=== PATIENT | male | born 1955 | race Caucasian/White ===

== ENCOUNTER → 2017-03-28 | Outpatient (CLI) | payer BC, MEDICARE ==
[2016-03-06 23:15] VITALS: BP 125/73
[~2017-03-28] MED LIST: ALLO300T PO; DULO60CA6 PO; EMPA25TA PO; ESOM40CA PO; GLIP10TA13 PO; IOHEXOL 300 MG/ML 100ML VIAL. IV ONE; LISI-334 PO; LORA1TAB PO; METO200T3 PO; SIMV40TA3 PO; TIZA4CAP PO; ZOLP10TA4 PO
--- NOTE | 2017-03-28 13:29 | KCIC ---
PROCEDURE CT abdomen and pelvis with and without contrast. HISTORY Microscopic hematuria. Elevated PSA. TECHNIQUE Precontrast imaging through the abdomen and pelvis was performed. Portal venous phase imaging through the kidneys was performed. Delayed imaging with coronal and sagittal maximum intensity projection re-formatted images was provided. The patient received 95 milliliters of intravenous Omnipaque 300 without complication. One or more of the following individualized dose reduction techniques were utilized for this exam: 1. Automated exposure control. 2. Adjustment of the mA and/or kV according to patient's size. 3. Use of iterative reconstruction technique. COMPARISON None. FINDINGS Precontrast imaging does not demonstrate any obstructing or nonobstructing renal calculus. Subcentimeter left renal cyst is noted. Delayed imaging through the collecting systems demonstrates no urothelial lesion. Bladder is mildly distended and grossly unremarkable. No endoluminal filling defect within the bladder is identified. Prostate is not enlarged. Prostate calcifications are noted. Two potential nodules are noted in the lingula on the 1st image of the precontrast series, up to 7 millimeters in size. Apparent dilated opacified bronchus in the left lower lobe is noted as well. There is no pleural effusion. There is atelectasis or linear scarring in the lung bases. The heart is not enlarged. Coronary artery calcifications are noted. Liver, gallbladder, spleen, pancreas, and adrenals are all grossly unremarkable. There is minimal atheromatous disease in the abdominal aorta. There is no dilated small bowel loop or air-fluid level. Normal appendix is noted. There is no pelvic sidewall adenopathy. There is no free pelvic fluid. There are mild degenerative changes in the spine which are greatest at the lumbosacral junction. IMPRESSION 1. No obstructing or nonobstructing renal calculus. Negative for urothelial lesion. 2. Sub centimeter left renal cyst. 3. Coronary artery calcifications. 4. Pulmonary nodules in the left lung base as well as dilated opacified left lower lobe bronchus. Assuming no prior studies with which to compare, 6 month follow up would be suggested. Electronically signed by: James Mccullough MD (March 28, 2017 13:27:59)
== END | disposition home or self-care (01) ==
LOC: KCIC CT 08:14
PROVIDERS: ATTEND Urology
DX: R31.29 Other microscopic hematuria (principal); N28.1 Cyst of kidney, acquired; R97.20 Elevated prostate specific antigen [PSA]; I25.10 Atherosclerotic heart disease of native coronary artery without angina pectoris; R91.1 Solitary pulmonary nodule; J44.9 Chronic obstructive pulmonary disease, unspecified; I10 Essential (primary) hypertension; F17.200 Nicotine dependence, unspecified, uncomplicated; E11.9 Type 2 diabetes mellitus without complications
CPT/HCPCS: 74178; 82565; Q9967

== ENCOUNTER → 2017-04-10 | Outpatient (CLI) | payer BC ==
[2016-03-06 23:15] VITALS: BP 125/73
[~2017-04-10] MED LIST changes: -IOHEXOL 300 MG/ML 100ML VIAL. IV ONE
== END | disposition home or self-care (01) ==
LOC: LAB 13:42
PROVIDERS: ATTEND Urology
DX: Z12.5 Encounter for screening for malignant neoplasm of prostate (principal); R97.20 Elevated prostate specific antigen [PSA]
CPT/HCPCS: 36415; G0103

== ENCOUNTER → 2017-04-26 | Outpatient (CLI) | payer BC ==
[2016-03-06 23:15] VITALS: BP 125/73
--- NOTE | 2017-04-26 10:16 | KCIC ---
EXAM: Chest CT without intravenous contrast. HISTORY: Pulmonary nodule follow-up. TECHNIQUE: Computed tomographic images of the chest were obtained without contrast. Multiplanar reformatting was performed. *One or more of the following individualized dose reduction techniques were utilized for this examination: 1. Automated exposure control. 2. Adjustment of the mA and/or kV according to patient size. 3. Use of iterative reconstruction technique. COMPARISON: 03/28/2017. FINDINGS: There are multiple nodular and groundglass opacities throughout both lungs, some of which are somewhat spiculated in appearance. This includes the recently demonstrated cluster of solid and groundglass nodules within the lateral left lower lobe and multiple additional nodules throughout the upper and lower lobes and right middle lobe. The largest nodules measure 8 mm. There is no pneumothorax or pleural effusion. The heart is normal in size. There is a trace pericardial effusion or pericardial thickening. There are multiple prominent mediastinal lymph nodes, the largest of which includes a 1.7 cm right paratracheal lymph node with faint calcification. There is central bronchial wall thickening and hilar lymphadenopathy, the latter which is difficult to measure due to the absence of intravenous contrast. There is a somewhat spiculated soft tissue density within the superior left hilum which may be due to aforementioned bronchial wall thickening and lymphadenopathy. However, the possibility of a superimposed hilar nodule is not excluded. There is coronary artery atherosclerosis. There is left greater than right basilar atelectasis. There is increased bilateral posterior pleural fat. There is no consolidation. No suspicious osseous lesion is seen. There is degenerative change throughout the thoracic spine. IMPRESSION: 1. Multiple scattered groundglass and nodular opacities throughout both lungs, some of which are somewhat spiculated in appearance and the largest of which measures approximately 8 mm. This includes a stable cluster of nodular opacities within the lateral left lower lobe demonstrated on the recent abdomen and pelvis CT. The differential includes postinfectious and postinflammatory etiologies as well as metastatic and primary bronchogenic neoplasms. In the absence of additional prior studies to assess longer term stability, short-term follow-up is recommended in 3 months. 2. Central bronchial wall thickening and hilar lymphadenopathy, difficult to assess in the absence of intravenous contrast. The possibility of a superimposed hilar nodule is not excluded on this exam. Attention the time of short-term follow-up is indicated. 3. Left greater than right lower lobe atelectasis or pleural-parenchymal scarring. Electronically signed by: Jessica Damon MD (04/26/2017 10:12 AM)
== END | disposition home or self-care (01) ==
LOC: KCIC CT 09:09
PROVIDERS: ATTEND Internal Medicine Critical Care Medicine
DX: R91.1 Solitary pulmonary nodule (principal); I10 Essential (primary) hypertension; F17.200 Nicotine dependence, unspecified, uncomplicated
CPT/HCPCS: 71250

== ENCOUNTER → 2017-08-04 | Outpatient (CLI) | payer BC ==
[2016-03-06 23:15] VITALS: BP 125/73
[~2017-08-04] MED LIST changes: -METO200T3 PO; +METO200T5 PO
--- NOTE | 2017-08-04 11:00 | KCIC ---
CT CHEST WO CONTRAST dated 08/04/2017 10:00 AM Indication: Lung nodule follow-up, smoker Comparison: April 26, 2017 Technique: Noncontrast CT imaging was performed of the chest, multiplanar reconstruction images submitted. One or more of the following individualized dose reduction techniques were utilized for this examination: 1. Automated exposure control 2. Adjustment of the mA and/or kV according to patient size 3. Use of iterative reconstruction technique. Findings: There are again multiple noncalcified nodules of the bilateral hemithoraces, some of which have a spiculated margin. Overall size and morphology is unchanged. Largest nodule of the right middle lobe measures 0.8 cm. There are also some foci of nodularity and groundglass density of the left lower lobe overall similar. There is again coronary calcification. There is no new lobar consolidation, pleural fluid, or pneumothorax. Thoracic aortic caliber is stable. There are again several mediastinal nodes, some associated calcification of subcarinal nodes. There are again suspected hilar nodes, not obviously changed. No new significant enlarged nodes are identified. IMPRESSION: 1. There are again multiple noncalcified bilateral pulmonary nodules not significantly changed compared with April 26, 2017 exam, some of which have a spiculated margin as seen previously. Nodules left lower lobe are subsolid appearance. Largest nodule again measures on the order of 0.8 cm. Mediastinal and hilar lymph nodes are unchanged. Follow-up in 3-6 months is recommended as per revised Fleischner guidelines. 2. There is coronary calcification. Electronically signed by: Mandeep Damico MD (08/04/2017 10:56 AM) [id number]
== END | disposition home or self-care (01) ==
LOC: KCIC CT 09:36
PROVIDERS: ATTEND Internal Medicine Critical Care Medicine
DX: R91.8 Other nonspecific abnormal finding of lung field (principal); R91.1 Solitary pulmonary nodule; F17.290 Nicotine dependence, other tobacco product, uncomplicated
CPT/HCPCS: 71250

== ENCOUNTER → 2018-01-05 | Outpatient (CLI) | payer BC | END | disposition home or self-care (01) | LOC: KCIC CT 09:21 | DX: I25.10 Atherosclerotic heart disease of native coronary artery without angina pectoris (principal); R91.8 Other nonspecific abnormal finding of lung field | CPT/HCPCS: 71250 ==

== ENCOUNTER → 2018-09-14 | Outpatient (CLI) | payer BC ==
[2016-03-06 23:15] VITALS: BP 125/73
[~2018-09-14] MED LIST changes: +METO200T46 PO; -METO200T5 PO
--- NOTE | 2018-09-14 10:32 | KCIC ---
CT CHEST WO CONTRAST dated 09/14/2018 8:30 AM Indication: Follow-up lung nodule... Comparison: 01/05/2018. Technique: Contiguous axial imaging the chest performed without the administration of intravenous contrast. One or more of the following individualized dose reduction techniques were utilized for this examination: 1. Automated exposure control 2. Adjustment of the mA and/or kV according to patient size 3. Use of iterative reconstruction technique Findings: Heart size within normal limits. No pericardial effusion. Mild ectasia of the ascending thoracic aorta measuring 3.97 is transverse diameter, unchanged. There are scattered coronary calcifications. There are mildly enlarged subcarinal, pretracheal and right paratracheal lymph nodes that measure up to 1.6 cm short axis, unchanged. There are also borderline enlarged lymph nodes posterior to the trachea near the thoracic inlet, stable from prior exam. No axillary or hilar adenopathy. There few scattered calcified lymph nodes. Central airways are patent. Mild emphysema. Noncalcified pulmonary nodule in the central left upper lobe on image 53 measures 8 mm, unchanged. There is also noncalcified pulmonary nodules in the left upper lobe on images 62 and 55 that measure up to 5 mm maximum dimension, unchanged. Several smaller subpleural nodular densities in the left upper lobe, stable. There is a 4 mm nodule in the left upper lobe on image 64, unchanged. Several additional noncalcified nodules in the right middle lobe, lingula and bilateral lower lobes are stable. There is a linear density in the lateral left lower lobe that likely represents mucous plugging, unchanged. A nodular density in the left lower lobe medially on image 133 measures 1.2 cm, unchanged. Medial left lower lobe nodule on image 144 measures 9 mm, unchanged. No new parenchymal nodule or focal consolidation. No significant pleural effusion. Limited images of the upper abdomen are unremarkable. No significant bony abnormality. Multilevel spondylosis. IMPRESSION: 1. Multiple noncalcified pulmonary nodules throughout both lungs, stable from prior study. Continued follow-up imaging recommended to ensure stability. 2. Mild mediastinal lymphadenopathy, also unchanged, nonspecific. 3. Area of mucous plugging in the left lower lobe is unchanged. 4. Coronary artery calcifications and mild aortic ectasia Electronically signed by: Kwadwo Avina MD (09/14/2018 10:29 AM) [id number]
== END | disposition home or self-care (01) ==
LOC: KCIC CT 08:06
PROVIDERS: ATTEND Internal Medicine Critical Care Medicine
DX: T17.890D Other foreign object in other parts of respiratory tract causing asphyxiation, subsequent encounter (principal); I77.810 Thoracic aortic ectasia; M47.894 Other spondylosis, thoracic region; I25.10 Atherosclerotic heart disease of native coronary artery without angina pectoris; R91.8 Other nonspecific abnormal finding of lung field; R59.0 Localized enlarged lymph nodes; X58.XXXD Exposure to other specified factors, subsequent encounter
CPT/HCPCS: 71250

== ENCOUNTER 2021-07-24 18:09 | Emergency (ER) | payer BC, MEDICARE ==
[~2021-07-24] VITALS: Ht 180.3 cm; Wt 92.0 kg
[~2021-07-24 18:09] MED LIST changes: -LISI-334 PO; +LISI20TA18 PO; +SIMV40TA18 PO; -SIMV40TA3 PO
[2021-07-24] MEDS ORDERED: ASPIRIN CHEWABLE 81 MG TABLET. PO ONE (18:30)
--- NOTE | 2021-07-24 18:31 | ED.ADGEN ---
Past Medical History Past Medical History: Anxiety, High Cholesterol, Hypertension Past Surgical History: Other Additional Past Surgical Histo: back Smoking Status: Current Some Day Smoker Alcohol Use: None Drug Use: None General Adult HPI: HPI: Patient is a 65 year old male coming in for sternal chest pain for the last 3 days. Patient states that he feels fine when sitting up but feels a pressure when he lays down flat. Patient states 3 days ago he was in the pool and went to tack picker his and thought maybe he had pulled something. Came in today because he wants to be sure he is not having a heart attack. Denies any other symptoms or radiation of the pain. States he otherwise has been well. Has no cardiac history. Has history of diabetes and hypertension and states he is compliant with medications. Has had both of his Covid vaccines. Denies any drug or alcohol use, smokes cigar every other day. Review of Systems: Review of Systems: All other systems within normal limits except for as noted in the HPI Current Medications: Current Medications Medications (Trade) Dose Ordered Sig/Benjamín Start Time Stop Time Status Last Admin Dose Admin Aspirin (Aspirin Chewable) 324 mg 1X ONCE 07/24/21 18:30 07/24/21 18:46 DC 07/24/21 18:43 324 MG Allergies: Allergies: Allergies Coded Allergies Type Severity Reaction Last Updated Verified No Known Drug Allergies 03/06/16 No Physical Exam: PE: Constitutional: Well developed, well nourished, no acute distress, non-toxic appearance. [] HENT: Normocephalic, atraumatic, bilateral external ears normal, nose normal. [] Eyes: PERRLA, conjunctiva normal, no discharge. [] Neck: No rigidity, supple, no stridor. [] Cardiovascular: Regular rate and rhythm, brisk cap refill [] Lungs & Thorax: Non labored symmetric respirations, no tachypnea or respiratory distress [] Abdomen: Soft, nondistended. Skin: Warm, dry, no erythema, no rash. [] Back: Unremarkable Extremities: No deformities, range of motion grossly intact, no lower extremity edema [] Neurologic: Alert and oriented X 3, no focal deficits noted. [] Psychologic: Affect normal, judgement normal, mood normal. [] Current Patient Data: Labs: Laboratory Tests Test 07/24/21 18:45 White Blood Count 7.3 x10^3/uL (4.0-11.0) Red Blood Count 5.05 x10^6/uL (4.30-5.70) Hemoglobin 16.2 g/dL (13.0-17.5) Hematocrit 46.4 % (39.0-53.0) Mean Corpuscular Volume 92 fL (79-100) Mean Corpuscular Hemoglobin 32 pg (25-35) Mean Corpuscular Hemoglobin Concent 35 g/dL (31-37) Red Cell Distribution Width 13.3 % (11.5-14.5) Platelet Count 187 x10^3/uL (140-400) Neutrophils (%) (Auto) 66 % (31-73) Lymphocytes (%) (Auto) 22 % (24-48) L Monocytes (%) (Auto) 10 % (0-9) H Eosinophils (%) (Auto) 1 % (0-3) Basophils (%) (Auto) 1 % (0-3) Neutrophils # (Auto) 4.8 x10^3/uL (1.8-7.7) Lymphocytes # (Auto) 1.6 x10^3/uL (1.0-4.8) Monocytes # (Auto) 0.7 x10^3/uL (0.0-1.1) Eosinophils # (Auto) 0.1 x10^3/uL (0.0-0.7) Basophils # (Auto) 0.1 x10^3/uL (0.0-0.2) Sodium Level 137 mmol/L (136-145) Potassium Level 3.7 mmol/L (3.5-5.1) Chloride Level 101 mmol/L (98-107) Carbon Dioxide Level 27 mmol/L (21-32) Anion Gap 9 (6-14) Blood Urea Nitrogen 19 mg/dL (8-26) Creatinine 1.5 mg/dL (0.7-1.3) H Estimated GFR (Cockcroft-Gault) 46.7 BUN/Creatinine Ratio 13 (6-20) Glucose Level 312 mg/dL (70-99) H Calcium Level 9.5 mg/dL (8.5-10.1) Total Bilirubin 0.4 mg/dL (0.2-1.0) Aspartate Amino Transferase (AST) 20 U/L (15-37) Alanine Aminotransferase (ALT) 28 U/L (16-63) Alkaline Phosphatase 93 U/L (46-116) Creatine Kinase 128 U/L (39-308) Troponin I Quantitative < 0.017 ng/mL (0.000-0.055) C-Reactive Protein, Quantitative 3.8 mg/L (0-3.3) H EG-Bva-A-Type Natriuretic Peptide 21 pg/mL (0-124) Total Protein 7.6 g/dL (6.4-8.2) Albumin 3.4 g/dL (3.4-5.0) Albumin/Globulin Ratio 0.8 (1.0-1.7) L Laboratory Tests 07/24/21 18:45 Laboratory Tests 07/24/21 18:45 Vital Signs: Vital Signs Date Time Temp Pulse Resp B/P (MAP) Pulse Ox O2 Delivery O2 Flow Rate FiO2 07/24/21 18:45 99.4 101 20 167/94 (90) 97 Room Air 99.4 EKG: EKG: Sinus rhythm, heart rate 104 bpm, left axis deviation, no ST elevation depression, no ectopy. Normal intervals [] Heart Score: C/O Chest Pain: Yes HEART Score for Chest Pain: HEART Score for Chest Pain Response (Comments) Value History Slighlty/Non-Suspicious 0 ECG Normal 0 Age > 65 2 Risk Factors 1 or 2 Risk Factors 1 Troponin < Normal Limit 0 Total 3 Risk Factors: Risk Factors: DM, Current or recent (<one month) smoker, HTN, HLP, family history of CAD, obesity. Risk Scores: Score 0 - 3: 2.5% MACE over next 6 weeks - Discharge Home Score 4 - 6: 20.3% MACE over next 6 weeks - Admit for Clinical Observation Score 7 - 10: 72.7% MACE over next 6 weeks - Early Invasive Strategies Radiology/Procedures: Radiology/Procedures: EP interpretation: Chest x-ray clear [] Course & Med Decision Making: Course & Med Decision Making Pertinent Labs and Imaging studies reviewed. (See chart for details) [] Dragon Disclaimer: Dragon Disclaimer: This electronic medical record was generated, in whole or in part, using a voice recognition dictation system. Departure Departure Impression: Primary Impression: Chest pain Disposition: 01 HOME / SELF CARE / HOMELESS Condition: STABLE Referrals: TAHIR WILSON MD (PCP) Patient Instructions: Chest Pain (Nonspecific) ELIZABETH COYNE MD Jul 24, 2021 18:31
[2021-07-24 18:54] LABS: BASO # 0.1 x10^3/uL (0.0-0.2); BASO % 1 % (0-3); EOS # 0.1 x10^3/uL (0.0-0.7); EOS % 1 % (0-3); HEMATOCRIT 46.4 % (39.0-53.0); HEMOGLOBIN 16.2 g/dL (13.0-17.5); LYMPH # 1.6 x10^3/uL (1.0-4.8); LYMPH % 22 % (24-48); MEAN CORPUSCULAR HEMOGLOBIN 32 pg (25-35); MEAN CORPUSCULAR HGB CONC 35 g/dL (31-37); MEAN CORPUSCULAR VOLUME 92 fL (79-100); MONO # 0.7 x10^3/uL (0.0-1.1); MONO % 10 % (0-9); NEUT # 4.8 x10^3/uL (1.8-7.7); NEUT % 66 % (31-73); PLATELET COUNT 187 x10^3/uL (140-400); RED BLOOD COUNT 5.05 x10^6/uL (4.30-5.70); RED CELL DISTRIBUTION WIDTH 13.3 % (11.5-14.5); WHITE BLOOD COUNT 7.3 x10^3/uL (4.0-11.0)
[2021-07-24 19:10] LABS: CALCIUM 9.5 mg/dL (8.5-10.1); CREATININE 1.5 mg/dL (0.7-1.3); GFR 46.7; POTASSIUM 3.7 mmol/L (3.5-5.1)
[2021-07-24 19:11] LABS: ALBUMIN 3.4 g/dL (3.4-5.0); ALBUMIN/GLOBULIN RATIO 0.8 (1.0-1.7); C-REACTIVE PROTEIN 3.8 mg/L (0-3.3); TOTAL BILIRUBIN 0.4 mg/dL (0.2-1.0); TOTAL PROTEIN 7.6 g/dL (6.4-8.2)
[2021-07-24 19:29] VITALS: BP 152/90
--- NOTE | 2021-07-24 20:54 | RAD ---
Two-view chest dated 07/24/2021 8:50 PM Comparison: 09/14/2018. CLINICAL INDICATION: Chest pain FINDINGS: PA and lateral views obtained. Heart and mediastinal contours within normal limits. Lungs are clear. No consolidation or pleural effusion. No pneumothorax. There are scattered small nodules, similar to prior study. IMPRESSION: 1. No acute radiographic abnormality. 2. Small likely not significant changed from the 2018 CT. If indicated, follow-up CT would more accur ately evaluate. Electronically signed by: Kwadwo Avina MD (07/24/2021 8:51 PM) [facility]
--- NOTE | 2021-07-24 21:27 | EKG ---
[facility] [address] [place] [id number] Test Date: 2021-07-24 Test Time: 18:31:28 Pat Name: HAILY IBARRA Department: Room: Gender: M Financial Accountant: : 1955 Requested By: ELIZABETH COYNE Order Number: [id number] Reading MD: Measurements Intervals [place] Rate: 104 P: 0 [place]: 116 QRS: -5 QRSD: 84 T: 64 QT: 330 QTc: 440 Interpretive Statements SINUS TACHYCARDIA LEFTWARD AXIS ST & T ABNORMALITY, CONSIDER HIGH LATERAL ISCHEMIA OR LEFT VENTRICULAR STRAIN ABNORMAL ECG RI6.02 No previous ECG available for comparison
== END 2021-07-24 20:22 | disposition home or self-care (01) ==
LOC: ER 18:09
DX: R07.2 Precordial pain (principal); E78.00 Pure hypercholesterolemia, unspecified; I10 Essential (primary) hypertension; F17.200 Nicotine dependence, unspecified, uncomplicated
CPT/HCPCS: 36415; 71046; 80053; 82550; 83880; 84484; 85025; 86140; 93005; 99283